=== PATIENT | male | born 1955 | race Caucasian/White ===

== ENCOUNTER 2018-10-24 07:55 | Outpatient (CLI) | payer BC ==
--- NOTE | 2018-10-24 08:32 | RAD ---
Chest 2 views HISTORY: Dyspnea. COMPARISON: 03/30/2019. FINDINGS: Cardiac silhouette is upper limits of normal in size. Pulmonary vasculature more engorged w ith widespread reticulonodular interstitial prominence. Aortic calcification. No lobar fluid, or pneumothorax. Degenerative changes of the thoracic spine on the lateral view. IMPRESSION: Widespread reticulonodular interstitial prominence favored to be related pulmonary vascul ar congestion/mild edema. Atherosclerosis.
== END 2018-10-24 07:56 | disposition home or self-care (01) ==
LOC: RAD 07:55
PROVIDERS: ATTEND Internal Medicine Critical Care Medicine
DX: R06.00 Dyspnea, unspecified (principal); R91.8 Other nonspecific abnormal finding of lung field; I70.0 Atherosclerosis of aorta
CPT/HCPCS: 71046

== ENCOUNTER 2019-01-06 15:00 | Outpatient (CLI) | payer BC | END 2019-01-06 15:01 | disposition home or self-care (01) | LOC: SLEEPLAB 15:00 | PROVIDERS: ATTEND Internal Medicine Critical Care Medicine | DX: G47.33 Obstructive sleep apnea (adult) (pediatric) (principal); R09.02 Hypoxemia | CPT/HCPCS: 95806 ==

== ENCOUNTER 2020-09-12 09:14 | Outpatient (CLI) | payer MEDICARE | END 2020-09-12 09:15 | disposition home or self-care (01) | LOC: ULT 09:14 | PROVIDERS: ATTEND Student in an Organized Health Care Education/Training Program | DX: R60.0 Localized edema (principal); R14.0 Abdominal distension (gaseous); R16.1 Splenomegaly, not elsewhere classified; Z90.49 Acquired absence of other specified parts of digestive tract | CPT/HCPCS: 93975 ==

== ENCOUNTER 2020-09-13 13:17 | Outpatient (CLI) | payer MEDICARE | END 2020-09-13 13:18 | disposition home or self-care (01) | LOC: ULT 13:17 | PROVIDERS: ATTEND Student in an Organized Health Care Education/Training Program | DX: N50.89 Other specified disorders of the male genital organs (principal); R60.0 Localized edema; R14.0 Abdominal distension (gaseous); R79.89 Other specified abnormal findings of blood chemistry | CPT/HCPCS: 93306 ==

== ENCOUNTER 2021-01-03 11:19 | Outpatient (CLI) | payer MEDICARE | END 2021-01-03 11:20 | disposition home or self-care (01) | LOC: BICCT 11:19 | PROVIDERS: ATTEND Family Medicine | DX: Z12.2 Encounter for screening for malignant neoplasm of respiratory organs (principal); F17.211 Nicotine dependence, cigarettes, in remission; J84.10 Pulmonary fibrosis, unspecified; R91.8 Other nonspecific abnormal finding of lung field; I25.10 Atherosclerotic heart disease of native coronary artery without angina pectoris; I70.0 Atherosclerosis of aorta; I77.811 Abdominal aortic ectasia; Z90.49 Acquired absence of other specified parts of digestive tract | CPT/HCPCS: 71271; 76775 ==

== ENCOUNTER 2021-03-05 19:30 | Outpatient (CLI) | payer MEDICARE | END 2021-03-05 19:31 | disposition home or self-care (01) | LOC: SLEEPLAB 19:30 | PROVIDERS: ATTEND Student in an Organized Health Care Education/Training Program | DX: G47.33 Obstructive sleep apnea (adult) (pediatric) (principal); R53.83 Other fatigue; E66.9 Obesity, unspecified; J44.9 Chronic obstructive pulmonary disease, unspecified; R09.02 Hypoxemia | CPT/HCPCS: 95811 ==

== ENCOUNTER 2021-07-25 11:43 | Outpatient (CLI) | payer MEDICARE, BC | END 2021-07-25 11:44 | disposition home or self-care (01) | LOC: ULT 11:43 | PROVIDERS: ATTEND Internal Medicine | DX: I50.32 Chronic diastolic (congestive) heart failure (principal); I51.7 Cardiomegaly | CPT/HCPCS: 93306 ==

== ENCOUNTER 2022-03-10 12:06 | Inpatient (IN) | payer MEDICARE, BC ==
[2022-03-10 12:46] LABS: #Eosinphils 0.1 thou/uL (0.0-0.7); #Lymphocytes 2.3 thou/uL (1.20-3.40); #Monocytes 0.6 thou/uL (0.11-0.59); #Neutrophils 6.2 thou/uL (1.40-6.50); %Basophils 0.1 % (0.0-1.0); %Eosinophils 0.8 % (0.0-10.0); %Lymphocytes 24.7 % (21.0-51.0); %Monocytes 6.9 % (0.0-10.0); %Neutrophils 67.5 % (42.0-75.0); Hemoglobin 15.5 g/dL (14.0-18.0); Mean Corpuscular HGB CONC 31.7 g/dL (32.0-36.0); Mean Corpuscular Hemoglobin 27.7 pg (27.0-31.0); Mean Corpuscular Volume 87.5 fl (78.0-98.0); Mean Platelet Volume 8.5 fL (7.4-10.4); Platelet Count 188 thou/uL (130-400); RBC Distribution Width 14.7 % (11.5-14.5); White Blood Cell (WBC) Count 9.2 thou/uL (4.8-10.8)
[2022-03-10 13:07] LABS: ALT (SGPT) 36 U/L (8-55); AST (SGOT) 24 U/L (5-34); Albumin 4.3 g/dL (3.4-4.8); Alkaline Phosphatase 74 U/L (40-110); Anion Gap 14 mmol/L (10-20); BUN (Urea Nitrogen) 15 mg/dL (8.4-25.7); Bilirubin, Total 0.9 mg/dL (0.2-1.2); Calc. Creatinine Clearance 0 mL/min (70-130); Carbon Dioxide 29 mmol/L (23-31); Chloride 98 mmol/L (98-107); Estimated GFR 68; Globulin 3.4 g/dL (2.4-3.5); Glucose 116 mg/dL (80-115); Lipase 12 U/L (8-78); Potassium 3.8 mmol/L (3.5-5.1); Protein, Total 7.7 g/dL (5.8-8.1); Sodium 137 mmol/L (136-145)
[2022-03-10] MEDS ORDERED: Acetaminophen 325 MG TAB PO PRN (15:04)
[2022-03-10] MEDS ORDERED: Dextrose 5% in Water 1,000 ML IV PRN (15:52)
[2022-03-10] MEDS ORDERED: Insulin Regular 300 UNITS/3 ML VIAL SC PRN ×2 (15:52)
[2022-03-10] MEDS ORDERED: Dextrose 50% Abboject 50 ML SYRINGE SLOW IVP PRN (15:52)
[2022-03-10 16:09] LABS: Troponin I Less than 0.010 ng/mL (< 0.028)
[2022-03-10 19:51] LABS: Troponin I Less than 0.010 ng/mL (< 0.028)
[2022-03-10 22:14] VITALS: BMI 40.0
[2022-03-10] MEDS: metFORMIN 500 MG TAB PO SCH (23:15)
[2022-03-10] MEDS ORDERED: Lactated Ringer's 1,000 ML IV SCH (23:15)
[2022-03-11 05:40] LABS: #Eosinphils 0.1 thou/uL (0.0-0.7); #Lymphocytes 2.3 thou/uL (1.20-3.40); #Monocytes 0.6 thou/uL (0.11-0.59); #Neutrophils 4.8 thou/uL (1.40-6.50); %Basophils 0.3 % (0.0-1.0); %Eosinophils 1.5 % (0.0-10.0); %Lymphocytes 28.9 % (21.0-51.0); %Monocytes 7.7 % (0.0-10.0); %Neutrophils 61.6 % (42.0-75.0); Hemoglobin 15.1 g/dL (14.0-18.0); Mean Corpuscular HGB CONC 32.4 g/dL (32.0-36.0); Mean Corpuscular Hemoglobin 28.9 pg (27.0-31.0); Mean Corpuscular Volume 89.3 fl (78.0-98.0); Mean Platelet Volume 8.8 fL (7.4-10.4); Platelet Count 171 thou/uL (130-400); RBC Distribution Width 14.7 % (11.5-14.5); Red Blood Cell (RBC) Count 5.21 mill/uL (4.70-6.10); White Blood Cell (WBC) Count 7.9 thou/uL (4.8-10.8)
[2022-03-11 06:01] LABS: ALT (SGPT) 30 U/L (8-55); AST (SGOT) 22 U/L (5-34); Albumin 3.8 g/dL (3.4-4.8); Alkaline Phosphatase 65 U/L (40-110); Anion Gap 11 mmol/L (10-20); BUN (Urea Nitrogen) 15 mg/dL (8.4-25.7); Bilirubin, Total 1.1 mg/dL (0.2-1.2); Calc. Creatinine Clearance 132 mL/min (70-130); Calcium 8.5 mg/dL (7.8-10.44); Carbon Dioxide 30 mmol/L (23-31); Cardiac Risk 4.2 (Less than 4.5); Chloride 100 mmol/L (98-107); Cholesterol 97 mg/dl (< 200 Desired); Estimated GFR 80; Globulin 2.9 g/dL (2.4-3.5); Glucose 116 mg/dL (80-115); HDL Cholesterol 23 mg/dL (>60 Neg Risk); LDL Cholesterol, Calculated 47 mg/dL; Potassium 3.4 mmol/L (3.5-5.1); Protein, Total 6.7 g/dL (5.8-8.1); Sodium 138 mmol/L (136-145); Triglycerides 134 mg/dL (Less than 150)
[2022-03-11] MEDS ORDERED: Potassium Chloride 20 MEQ TAB PO SCH (08:45)
[2022-03-11] MEDS ORDERED: Enoxaparin Sodium 40 MG/0.4 ML SYRINGE SC SCH (09:00)
[2022-03-11] MEDS ORDERED: HumaLOG 300 UNITS/3 ML VIAL SC PRN ×2 (10:09)
[2022-03-11] MEDS: metFORMIN 500 MG TAB PO SCH ×2 (12:01→18:10)
[2022-03-11] MEDS: Aspirin 81 mg Enteric Coated Tablet PO SCH (12:02)
[2022-03-11] MEDS: Empagliflozin 25 MG TAB PO SCH (12:02)
[2022-03-11] MEDS: Atorvastatin Calcium 40 MG TAB PO SCH (12:02)
[2022-03-11] MEDS: Spironolactone 25 MG TAB PO SCH (12:03)
[2022-03-11] MEDS ORDERED: Regadenoson 0.4 MG/5 ML SYRINGE ONE (12:10)
[2022-03-11] MEDS: Bumetanide 1 MG TAB PO SCH (20:02)
[2022-03-11] MEDS ORDERED: Non-Formulary Item 1 EACH (Bumetanide [Bumetanide] 2 MG Tablet) PO SCH (21:00)
[2022-03-12] MEDS: Calcium Carbonate 500 MG ChewTAB PO PRN ×2 (03:16→08:16)
[2022-03-12 05:03] LABS: #Basophils 0.1 thou/uL (0.0-0.2); #Eosinphils 0.1 thou/uL (0.0-0.7); #Monocytes 0.5 thou/uL (0.11-0.59); #Neutrophils 5.5 thou/uL (1.40-6.50); %Basophils 0.7 % (0.0-1.0); %Eosinophils 0.9 % (0.0-10.0); %Lymphocytes 24.9 % (21.0-51.0); %Monocytes 5.8 % (0.0-10.0); %Neutrophils 67.7 % (42.0-75.0); Hemoglobin 14.8 g/dL (14.0-18.0); Mean Corpuscular HGB CONC 31.5 g/dL (32.0-36.0); Mean Corpuscular Hemoglobin 27.8 pg (27.0-31.0); Mean Corpuscular Volume 88.2 fl (78.0-98.0); Mean Platelet Volume 8.4 fL (7.4-10.4); Platelet Count 163 thou/uL (130-400); RBC Distribution Width 14.7 % (11.5-14.5); Red Blood Cell (RBC) Count 5.31 mill/uL (4.70-6.10); White Blood Cell (WBC) Count 8.1 thou/uL (4.8-10.8)
[2022-03-12 05:34] LABS: ALT (SGPT) 32 U/L (8-55); AST (SGOT) 22 U/L (5-34); Albumin 3.9 g/dL (3.4-4.8); Alkaline Phosphatase 68 U/L (40-110); Anion Gap 13 mmol/L (10-20); BUN (Urea Nitrogen) 16 mg/dL (8.4-25.7); Bilirubin, Total 1.1 mg/dL (0.2-1.2); Calc. Creatinine Clearance 125 mL/min (70-130); Carbon Dioxide 25 mmol/L (23-31); Chloride 104 mmol/L (98-107); Estimated GFR 76; Globulin 2.9 g/dL (2.4-3.5); Glucose 116 mg/dL (80-115); Potassium 3.9 mmol/L (3.5-5.1); Protein, Total 6.8 g/dL (5.8-8.1); Sodium 138 mmol/L (136-145)
[2022-03-12] MEDS: Spironolactone 25 MG TAB PO SCH (08:16)
[2022-03-12] MEDS: Atorvastatin Calcium 40 MG TAB PO SCH (08:16)
[2022-03-12] MEDS: Aspirin 81 mg Enteric Coated Tablet PO SCH (08:16)
[2022-03-12] MEDS: Bumetanide 1 MG TAB PO SCH (08:16)
[2022-03-12] MEDS: Empagliflozin 25 MG TAB PO SCH (08:16)
[2022-03-12] MEDS: metFORMIN 500 MG TAB PO SCH (11:39)
[2022-03-12 11:48] VITALS: BP 114/71; TEMP 97.3
== END 2022-03-12 16:00 | disposition home or self-care (01) | DRG 315 ==
LOC: ERS 12:06 → ERHOLD 15:08 → 2SW 21:02 → OBSVTOIN 03-12 13:08
PROVIDERS: ADMIT Family Medicine; ATTEND Family Medicine
DX: R94.31 Abnormal electrocardiogram [ECG] [EKG] (principal); I50.42 Chronic combined systolic (congestive) and diastolic (congestive) heart failure; I95.2 Hypotension due to drugs; T50.0X5A Adverse effect of mineralocorticoids and their antagonists, initial encounter; Z20.822 Contact with and (suspected) exposure to COVID-19; R07.9 Chest pain, unspecified; R00.2 Palpitations; R42 Dizziness and giddiness; R94.39 Abnormal result of other cardiovascular function study; I11.0 Hypertensive heart disease with heart failure; E78.5 Hyperlipidemia, unspecified; E11.9 Type 2 diabetes mellitus without complications; I27.20 Pulmonary hypertension, unspecified; Z90.89 Acquired absence of other organs; Z90.49 Acquired absence of other specified parts of digestive tract; Z98.890 Other specified postprocedural states; Z87.891 Personal history of nicotine dependence; Z79.82 Long term (current) use of aspirin; Z79.84 Long term (current) use of oral hypoglycemic drugs; Z79.899 Other long term (current) drug therapy
CPT/HCPCS: 36415; 36416; 71045; 78452; 80053; 80061; 83690; 84443; 84484; 85025; 93005; 93017; A9500; G0378; J2785; J7120; U0003; U0005

== ENCOUNTER 2022-05-14 08:08 | Outpatient (CLI) | payer MEDICARE, BC ==
[2022-05-14] MEDS ORDERED: Magnevist 469MG/ML 20 ML VIAL ONE (14:27)
== END 2022-05-14 08:09 | disposition home or self-care (01) ==
LOC: MRI 08:08
PROVIDERS: ATTEND Internal Medicine
DX: G45.9 Transient cerebral ischemic attack, unspecified (principal); I50.33 Acute on chronic diastolic (congestive) heart failure; R55 Syncope and collapse
CPT/HCPCS: 70544; 70549; A9579

== ENCOUNTER 2022-08-20 10:15 | Outpatient (CLI) | payer MEDICARE, BC | END 2022-08-20 10:16 | disposition home or self-care (01) | LOC: BICCT 10:15 | PROVIDERS: ATTEND Family Medicine | DX: Z12.2 Encounter for screening for malignant neoplasm of respiratory organs (principal); Z87.891 Personal history of nicotine dependence; I77.810 Thoracic aortic ectasia; R91.8 Other nonspecific abnormal finding of lung field | CPT/HCPCS: 71271 ==

== ENCOUNTER 2023-01-07 13:54 | Observation (INO) | payer MEDICARE, BC ==
[2023-01-07 14:29] LABS: #Basophils 0.1 thou/uL (0.0-0.2); #Eosinphils 0.1 thou/uL (0.0-0.7); #Monocytes 0.6 thou/uL (0.11-0.59); #Neutrophils 5.7 thou/uL (1.40-6.50); %Basophils 0.7 % (0.0-1.0); %Eosinophils 1.3 % (0.0-10.0); %Lymphocytes 25.7 % (21.0-51.0); %Monocytes 7.1 % (0.0-10.0); %Neutrophils 64.9 % (42.0-75.0); Hemoglobin 14.7 g/dL (14.0-18.0); Mean Corpuscular HGB CONC 31.3 g/dL (32.0-36.0); Mean Corpuscular Hemoglobin 26.5 pg (27.0-31.0); Mean Corpuscular Volume 84.8 fl (78.0-98.0); Platelet Count 210 10x3/uL (130-400); RBC Distribution Width 15.5 % (11.5-14.5); Red Blood Cell (RBC) Count 5.54 mill/uL (4.70-6.10); White Blood Cell (WBC) Count 8.7 10x3/uL (4.8-10.8)
[2023-01-07 14:49] LABS: ALT (SGPT) 23 U/L (8-55); AST (SGOT) 29 U/L (5-34); Albumin 4.1 g/dL (3.4-4.8); Alkaline Phosphatase 69 U/L (40-110); Anion Gap 23 mmol/L (10-20); BUN (Urea Nitrogen) 32 mg/dL (8.4-25.7); Bilirubin, Total 0.6 mg/dL (0.2-1.2); Calc. Creatinine Clearance 0 mL/min (70-130); Calcium 7.9 mg/dL (7.8-10.44); Carbon Dioxide 35 mmol/L (23-31); Chloride 87 mmol/L (98-107); Estimated GFR 35; Globulin 3.8 g/dL (2.4-3.5); Glucose 120 mg/dL (80-115); Potassium 3.1 mmol/L (3.5-5.1); Protein, Total 7.9 g/dL (5.8-8.1); Sodium 142 mmol/L (136-145)
[2023-01-07 15:01] LABS: Magnesium 0.6 mg/dL (1.6-2.6)
[2023-01-07] MEDS ORDERED: Magnesium 2 GM/50 ML BAG (IN WATER) ONE (15:40)
[2023-01-07] MEDS ORDERED: Potassium Chloride 20 MEQ TAB ONE (15:40)
[2023-01-07] MEDS ORDERED: Dextrose 50% Abboject 50 ML SYRINGE SLOW IVP PRN (17:04)
[2023-01-07] MEDS ORDERED: Dextrose 5% in Water 1,000 ML IV PRN (17:04)
[2023-01-07] MEDS ORDERED: Insulin Regular 300 UNITS/3 ML VIAL SC PRN (17:04)
[2023-01-07] MEDS ORDERED: Glucagon 1 MG/ML KIT IM PRN (17:04)
[2023-01-07 19:46] LABS: Anion Gap 20 mmol/L (10-20); BUN (Urea Nitrogen) 29 mg/dL (8.4-25.7); Calc. Creatinine Clearance 0 mL/min (70-130); Calcium 7.5 mg/dL (7.8-10.44); Carbon Dioxide 34 mmol/L (23-31); Chloride 91 mmol/L (98-107); Estimated GFR 37; Glucose 96 mg/dL (80-115); Magnesium 1.2 mg/dL (1.6-2.6); Potassium 3.5 mmol/L (3.5-5.1); Sodium 141 mmol/L (136-145)
[2023-01-07 19:47] LABS: Phosphorus 3.7 mg/dL (2.3-4.7)
[2023-01-07] MEDS: metFORMIN 500 MG TAB PO SCH (20:34)
[2023-01-07] MEDS: Gabapentin 300 MG CAP PO SCH (20:35)
[2023-01-07] MEDS: Acetaminophen 325 MG TAB PO PRN (20:35)
[2023-01-07] MEDS ORDERED: Magnesium 2 GM/50 ML(in water) 2 GM in Premix Bag 1 BAG IVPB SCH (23:00)
[2023-01-07] MEDS ORDERED: Potassium Chloride 20 MEQ TAB PO SCH (23:00)
[2023-01-08] MEDS: Acetaminophen 325 MG TAB PO PRN (00:34)
[2023-01-08] MEDS ORDERED: Diclofenac 1% 50 GM TOPICAL GEL TP PRN (00:43)
[2023-01-08 05:48] LABS: #Basophils 0.1 thou/uL (0.0-0.2); #Eosinphils 0.2 thou/uL (0.0-0.7); #Monocytes 0.6 thou/uL (0.11-0.59); #Neutrophils 4.2 thou/uL (1.40-6.50); %Eosinophils 2.1 % (0.0-10.0); %Lymphocytes 30.7 % (21.0-51.0); %Monocytes 8.4 % (0.0-10.0); %Neutrophils 57.7 % (42.0-75.0); Hemoglobin 13.5 g/dL (14.0-18.0); Mean Corpuscular HGB CONC 31.4 g/dL (32.0-36.0); Mean Corpuscular Hemoglobin 26.8 pg (27.0-31.0); Mean Corpuscular Volume 85.5 fl (78.0-98.0); Mean Platelet Volume 10.6 fL (7.4-10.4); Platelet Count 180 10x3/uL (130-400); RBC Distribution Width 15.7 % (11.5-14.5); Red Blood Cell (RBC) Count 5.03 mill/uL (4.70-6.10); White Blood Cell (WBC) Count 7.3 10x3/uL (4.8-10.8)
[2023-01-08 06:14] LABS: Anion Gap 17 mmol/L (10-20); BUN (Urea Nitrogen) 29 mg/dL (8.4-25.7); Calc. Creatinine Clearance 68 mL/min (70-130); Calcium 7.1 mg/dL (7.8-10.44); Carbon Dioxide 34 mmol/L (23-31); Chloride 92 mmol/L (98-107); Estimated GFR 38; Glucose 102 mg/dL (80-115); Potassium 3.4 mmol/L (3.5-5.1); Sodium 140 mmol/L (136-145)
[2023-01-08 07:15] LABS: Magnesium 1.7 mg/dL (1.6-2.6)
[2023-01-08] MEDS: Gabapentin 300 MG CAP PO SCH ×2 (08:38→14:20)
[2023-01-08] MEDS: metFORMIN 500 MG TAB PO SCH (08:38)
[2023-01-08] MEDS ORDERED: Potassium Chloride 20 MEQ TAB PO SCH (08:52)
[2023-01-08] MEDS ORDERED: Empagliflozin 25 MG TAB PO SCH (09:00)
[2023-01-08] MEDS ORDERED: Atorvastatin Calcium 40 MG TAB PO SCH (09:00)
[2023-01-08] MEDS ORDERED: Lactated Ringer's 1,000 ML IV SCH (09:00)
[2023-01-08] MEDS ORDERED: Spironolactone 25 MG TAB PO SCH (09:00)
[2023-01-08] MEDS ORDERED: Aspirin 81 mg Enteric Coated Tablet PO SCH (09:00)
[2023-01-08] MEDS ORDERED: Magnesium 2 GM/50 ML(in water) 2 GM in Premix Bag 1 BAG IVPB SCH (09:15)
[2023-01-08 13:35] VITALS: BMI 38.1
[2023-01-08 13:44] LABS: Magnesium 1.9 mg/dL (1.6-2.6)
[2023-01-08] MEDS ORDERED: Magnesium Oxide 400 MG TAB PO SCH (14:18)
[2023-01-08 14:40] LABS: Creatinine, Urine 83.75 mg/dL (63-166)
[2023-01-08 15:13] VITALS: BP 106/66; TEMP 97.4
[2023-01-08 15:31] LABS: Anion Gap 21 mmol/L (10-20); BUN (Urea Nitrogen) 25 mg/dL (8.4-25.7); Calc. Creatinine Clearance 82 mL/min (70-130); Calcium 7.8 mg/dL (7.8-10.44); Carbon Dioxide 29 mmol/L (23-31); Chloride 94 mmol/L (98-107); Estimated GFR 48; Glucose 113 mg/dL (80-115); Potassium 3.7 mmol/L (3.5-5.1); Sodium 140 mmol/L (136-145)
== END 2023-01-08 15:35 | disposition home or self-care (01) ==
LOC: ERS 13:54 → 2NO 16:25
PROVIDERS: ADMIT Family Medicine; ATTEND Family Medicine
DX: E83.42 Hypomagnesemia (principal); I11.0 Hypertensive heart disease with heart failure; I50.20 Unspecified systolic (congestive) heart failure; I45.81 Long QT syndrome; E87.6 Hypokalemia; I87.8 Other specified disorders of veins; I95.9 Hypotension, unspecified; E11.9 Type 2 diabetes mellitus without complications; N17.9 Acute kidney failure, unspecified; K21.9 Gastro-esophageal reflux disease without esophagitis; Z79.82 Long term (current) use of aspirin; Z79.899 Other long term (current) drug therapy; Z98.49 Cataract extraction status, unspecified eye; Z90.89 Acquired absence of other organs; Z87.891 Personal history of nicotine dependence
CPT/HCPCS: 73564; 73590; 80048 ×3; 80053; 82570; 82962 ×2; 83735 ×2; 83880; 84100; 84540; 85025 ×2; 93005; 96361; 96365; 96372; 96376 ×2; 99285; G0378 ×3; 36415; 36416; J1650; J3475; J7120

== ENCOUNTER 2023-02-25 12:41 | Outpatient (CLI) | payer MEDICARE, BC | END 2023-02-25 12:42 | disposition home or self-care (01) | LOC: ULT 12:41 | PROVIDERS: ATTEND Internal Medicine | DX: I73.9 Peripheral vascular disease, unspecified (principal); I50.33 Acute on chronic diastolic (congestive) heart failure | CPT/HCPCS: 93306; 93923 ==